=== PATIENT | female | born 1945 | race Caucasian/White ===

== ENCOUNTER 2017-02-09 13:12 | Outpatient (CLI) | payer OTHER ==
[~2017-02-09 13:12] MED LIST: ASPIRIN81 M1 PO; BYSTOLIC10 MG PO; CALCIUM +D PO; CRESTOR40 MG PO; ESTRADIOL1 MG PO; FOLIC ACID1 MG PO; MULTIVITAMIN1 TAB PO; NIACIN ER500 MG PO; PROMETRIUM100 MG PO
--- NOTE | 2017-02-13 13:00 | DIAGNOSTIC IMAGING REPORT ---
PROCEDURE: CT THORAX WITH CONTRAST INDICATION: Follow-up abnormal chest x-ray. Possible eventration or diaphragmatic mass TECHNIQUE: 100 ml of Isovue 300 injected intravenously and axial images were obtained of the entire thorax with sagittal and coronal reconstructions. COMPARISON: Compared to chest x-rays from [facility] on 01/13/2017 and 01/11/2017. FINDINGS: Lungs are clear. No evidence of mass or underlying abnormality. There is a prominent fat pad at the left cardiophrenic angle. However, there is no evidence of a diaphragmatic eventration or diaphragmatic mass. Heart is of normal size. There are moderate coronary vascular calcifications (or left circumflex vascular stent). Mediastinum is normal, and there is no evidence of adenopathy. There are mild to moderate calcified atheromatous changes of the thoracic and abdominal aorta. There are mild degenerative changes of the thoracic spine. Portions of the upper abdomen are seen. Status post cholecystectomy (surgical clips). There are multiple well circumscribed low density areas in the liver ( 0.5 cm - 3.1 cm) most likely representing cysts. There is a 2.3 cm left adrenal nodule (65 HU) Pancreas, spleen, appear normal. IMPRESSION: 1. Prominent fat pad at the left cardiophrenic angle. No evidence of eventration or diaphragmatic mass. 2. No evidence of lung mass or adenopathy. 3. Moderate coronary vascular calcifications (versus left coronary stent). 4. Status post cholecystectomy. 5. Multiple low density areas in the liver most compatible with cysts. Ultrasound is recommended at this time to confirm. 6. There is a 2.3 cm left adrenal nodule (65 HU). While this most likely represents a benign adenoma, follow-up CT abdomen and adrenal glands and 3 months is recommended to confirm stability (without and with contrast, including adrenal washout protocol). 7. Findings discussed with Dr. Diggs. All CT scans at this facility use dose modulation, iterative reconstruction, and/or weight-based dosing when appropriate to reduce radiation dose to as low as reasonably achievable.
== END 2017-02-09 23:00 | disposition home or self-care (01) ==
LOC: CT SRH 13:12
DX: R91.8 Other nonspecific abnormal finding of lung field (principal); I21.3 ST elevation (STEMI) myocardial infarction of unspecified site; F41.8 Other specified anxiety disorders

== ENCOUNTER 2017-02-22 08:41 | Outpatient (CLI) | payer OTHER ==
--- NOTE | 2017-02-22 10:56 | DIAGNOSTIC IMAGING REPORT ---
PROCEDURE: US ABDOMEN ULTRASOUND-COMPLETE INDICATION: LIVER SPOTS;RUQ TECHNIQUE: Leyva scale and color Doppler sonographic images of the abdomen were obtained without comparison. COMPARISON: 02/09/2017 CT thorax FINDINGS: The liver is mildly enlarged measuring at least 20 cm. The echotexture is mildly diffusely hyperechoic, consistent with fatty infiltration as seen on CT. There are multiple thin-walled ovoid anechoic lesions throughout the liver, the largest in the left lobe measuring 3.3 x 4.1 x 2.7 cm and the largest in the right lobe measuring 1.1 cm. No internal vascularity. No suspicious solid lesions are seen. No biliary dilatation. The gallbladder surgically absent. The extrahepatic common duct is normal at 2.6 mm. The visualized pancreas is normal without ductal dilatation or peripancreatic fluid collection. The abdominal aorta is normal in its course and caliber with mild calcific atherosclerotic irregularity. The retrohepatic inferior vena cava is patent. There is appropriate hepatopetal flow in the portal vein. The right kidney measures 10.9 cm in length. The left kidney measures 10.3 cm in length. Both kidneys demonstrate normal morphology and cortical thickness without hydronephrosis, cyst, solid mass, or shadowing calculus. Color Doppler imaging demonstrates normal blood flow in each kidney. The spleen is normal in size measuring 10.3 cm in length. There is no perihepatic or perisplenic ascites. The left adrenal gland was not well visualized on ultrasound. IMPRESSION: 1. Multiple hepatic cystic structures. No definite solid mass although many are too small to characterize on CT. 2. Mild hepatomegaly and hepatic steatosis. 3. Status post cholecystectomy.
== END 2017-02-22 23:00 | disposition home or self-care (01) ==
LOC: US SRH 08:41
DX: R16.0 Hepatomegaly, not elsewhere classified (principal); K76.0 Fatty (change of) liver, not elsewhere classified

== ENCOUNTER 2017-05-07 10:15 | Outpatient (CLI) | payer OTHER ==
--- NOTE | 2017-05-07 12:20 | DIAGNOSTIC IMAGING REPORT ---
PROCEDURE: CT ABDOMEN W/WO CONTRAST CLINICAL INDICATION: RENAL MASS TECHNIQUE: Axial scans before and after 125 ml of Isovue 300 injected intravenously were obtained through the entire abdomen with sagittal and coronal reformations. COMPARISON: Abdominal ultrasound 02/22/[address] thorax 02/09/2017. FINDINGS: There is a 2.3 cm left adrenal mass which measures 22 Hounsfield units on the nonenhanced images, 76 HU on the post contrast images and 46 HU on delayed images. Absolute adrenal washout is 56%. Multiple hypoenhancing hepatic lesions (0.5 - 3.1 cm), without any filling in on delayed images, most consistent with cysts. Cholecystectomy. Pancreas, spleen and right adrenal gland are normal. New patchy enhancement of the kidneys suggestive of pyelonephritis. Moderate atherosclerosis of the aorta. Mild descending colon diverticulosis. Partially visualized midline ventral hernia. Mild degenerative changes of the spine. IMPRESSION: 1. Stable 2.3 cm left adrenal mass, probably benign, but which does not exhibit the classical washout characteristics of a benign adenoma. Recommend follow-up CT scan in 6 months. 2. Patchy enhancement of both kidneys suggestive of pyelonephritis. Emboli are less likely. 3. Multiple hepatic cysts 4. Cholecystectomy 5. Diverticulosis 6. Results discussed with Dr. Diggs All CT scans at this facility use dose modulation, iterative reconstruction, and/or weight-based dosing when appropriate to reduce radiation dose to as low as reasonably achievable.
== END 2017-05-08 15:48 | disposition home or self-care (01) ==
LOC: CT SRH 10:15
DX: N28.89 Other specified disorders of kidney and ureter (principal); N28.1 Cyst of kidney, acquired; K57.30 Diverticulosis of large intestine without perforation or abscess without bleeding; Z90.49 Acquired absence of other specified parts of digestive tract